=== PATIENT | female | born 1995 | race Caucasian/White ===

== ENCOUNTER → 2022-08-04 | Outpatient (CLI) | payer SELFPAY | END | disposition home or self-care (01) | LOC: LABWHC1 15:05 | PROVIDERS: ATTEND Emergency Medicine | DX: Z53.9 Procedure and treatment not carried out, unspecified reason (principal) | CPT/HCPCS: 36415; 86480 ==

== ENCOUNTER 2022-09-12 21:09 | Observation (INO) | payer OTHER ==
[2022-09-12 21:13] LABS: Glucose,Whole Blood 113 mg/dL (70-110)
[2022-09-12] MEDS ORDERED: SODIUM CHLORIDE 0.9% 1,000 ML IV STA (21:14)
--- NOTE | 2022-09-12 21:19 | ED ---
General Adult HPI - General Stated complaint: Seizure Time Seen by Provider: 09/12/22 21:14 Source: patient, RN notes reviewed, old records reviewed Limitations: altered mental status - History of Present Illness Initial comments: 27-year-old female presents with witnessed seizure. 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 At the time my evaluation patient is initially seizing but this stops without treatment. She is postictal and unable to give a complete history. Unknown prior medical history. - Related Data Home Medications Medication Instructions Recorded Confirmed ALPRAZolam [Xanax] 1 mg PO BID PRN 09/12/22 09/12/22 Dextroamphetamine/Amphetamine 10 mg PO DAILY PRN 09/12/22 09/12/22 [Adderall] Escitalopram [Lexapro] 10 mg PO DAILY 09/12/22 09/12/22 Lisdexamfetamine Dimesylate 40 mg PO DAILY 09/12/22 09/12/22 [Vyvanse] buPROPion XL [Wellbutrin XL] 300 mg PO DAILY 09/12/22 09/12/22 hydrOXYzine HCL [Atarax] 50 mg PO DAILY PRN 09/12/22 09/12/22 Allergies Allergy/AdvReac Type Severity Reaction Status Date / Time No Known Allergies Allergy Verified 09/12/22 22:10 Review of Systems ROS Statement: Those systems with pertinent positive or pertinent negative responses have been documented in the HPI. ROS Other: All systems not noted in ROS Statement are negative. General Exam General appearance: obtunded, in distress Head exam: Present: other (Chin abrasion). Absent: atraumatic (Right parietal hematoma) Eye exam: Present: normal appearance, PERRL ENT exam: Present: other (Bilateral tongue abrasion) Respiratory exam: Absent: respiratory distress, wheezes Cardiovascular Exam: Present: normal rhythm, tachycardia GI/Abdominal exam: Present: soft. Absent: distended, tenderness, guarding Extremities exam: Present: normal inspection, normal capillary refill Neurological exam: Present: alert, CN II-XII intact. Absent: motor sensory deficit Skin exam: Present: diaphoretic Course Vital Signs 09/12/22 09/12/22 09/12/22 21:25 21:30 23:47 Temperature 98.7 F Pulse Rate 98 118 H 91 Respiratory 18 Rate Blood Pressure 140/86 118/76 O2 Sat by Pulse 98 Oximetry - Reevaluation(s) Reevaluation #1: 09/12/22 21:42 Patient return to baseline mental status alert and oriented 3. Able to give history. No prior history of seizure disorder. EKG Findings - EKG Comments: EKG Findings:: EKG: Sinus tachycardia rate of 104, FL interval 118, QRS duration 98, QTC 413, RSR prime - EKG Results: EKG: interpreted by ANTHONY Medical Decision Making - Medical Decision Making Was pt. sent in by a medical professional or institution (, PA, GENERAL FARMWORKER, urgent care, hospital, or [facility]...) When possible be specific @ -No Did you speak to anyone other than the patient for history (EMS, parent, family, police, friend...)? What history was obtained from this source @ -No Did you review nursing and triage notes (agree or disagree)? Why? @ -I reviewed and agree with nursing and triage notes Were old charts reviewed (outside hosp., previous admission, EMS record, old EKG, old radiological studies, urgent care reports/EKG's, [facility] records)? Report findings @ -No old charts were reviewed Differential Diagnosis (chest pain, altered mental status, abdominal pain women, abdominal pain men, vaginal bleeding, weakness, fever, dyspnea, syncope, headache, dizziness, GI bleed, back pain, seizure, CVA, palpatations, mental health, musculoskeletal)? @ -Differential Seizure: Recurrent seizure disorder, febrile seizure, alcohol withdrawal, stimulants, meningitis, encephalitis, intercranial hemorrhage, intracranial tumor, stroke, eclampsia, thyrotoxicosis, hypocalcemia, hyponatremia, hypernatremia, hypomagnesemia, psychogenic, this is not meant to be an all-inclusive list. EKG interpreted by me (3pts min.). @ -As above X-rays interpreted by me (1pt min.). @ -None done CT interpreted by me (1pt min.). @ -CT brain performed, negative for intracranial hemorrhage, reviewed by myself and agree with the radiologist interpretation U/S interpreted by me (1pt. min.). @ -None done What testing was considered but not performed or refused? (CT, X-rays, U/S, labs)? Why? @ -None What meds were considered but not given or refused? Why? @ -None Did you discuss the management of the patient with other professionals (professionals i.e. , PA, GENERAL FARMWORKER, lab, RT, psych nurse, nursing home social worker, environmental lawyer, teacher, cra officer, social work case manager)? Give summary @ -No Was smoking cessation discussed for >3mins.? @ -No Was critical care preformed (if so, how long)? @ -No Were there social determinants of health that impacted care today? How? (Homelessness, low income, unemployed, alcoholism, drug addiction, transportation, low edu. Level, literacy, decrease access to med. care, snf, rehab)? @ -No Was there de-escalation of care discussed even if they declined (Discuss DNR or withdrawal of care, Hospice)? DNR status @ -No What co-morbidities impacted this encounter? (DM, HTN, Smoking, COPD, CAD, Cancer, CVA, ARF, Chemo, Hep., AIDS, mental health diagnosis, sleep apnea, morbid obesity)? @ -None Was patient admitted / discharged? Hospital course, mention meds given and route, prescriptions, significant lab abnormalities, going to OR and other pertinent info. @ -27-year-old female presenting with witnessed tonic-clonic seizure. No prior history of seizure disorder. Patient had both head and facial trauma. CT was performed which is negative. Normal CBC, normal CMP, urinalysis and urine test pending. Patient will be observed on seizure precautions with neurology on consult. Undiagnosed new problem with uncertain prognosis? @ -No Drug Therapy requiring intensive monitoring for toxicity (Heparin, Nitro, Ins ulin, Cardizem)? @ -No Were any procedures done? @ -No Diagnosis/symptom? @ -New-onset seizure Acute, or Chronic, or Acute on Chronic? @ -Acute Uncomplicated (without systemic symptoms) or Complicated (systemic symptoms)? @ -Uncomplicated Side effects of treatment? @ -No Exacerbation, Progression, or Severe Exacerbation? @ -No Poses a threat to life or bodily function? How? (Chest pain, [place], CO, pneumonia, PE, COPD, DKA, ARF, appy, cholecystitis, CVA, Diverticulitis, Homicidal, Suicidal, threat to staff... and all critical care pts) @ -No - Lab Data Result diagrams: 09/12/22 22:01 09/12/22 22:01 Lab Results 09/12/22 09/12/22 09/12/22 Range/Units 21:12 22:01 22:01 WBC 7.9 (3.8-10.6) k/uL RBC 4.84 (3.80-5.40) m/uL Hgb 13.4 (11.4-16.0) gm/dL Hct 40.3 (34.0-46.0) % MCV 83.4 (80.0-100.0) fL MCH 27.7 (25.0-35.0) pg MCHC 33.3 (31.0-37.0) g/dL RDW 13.3 (11.5-15.5) % Plt Count 326 (150-450) k/uL MPV 6.6 Neutrophils % 63 % Lymphocytes % 29 % Monocytes % 3 % Eosinophils % 3 % Basophils % 1 % Neutrophils # 5.0 (1.3-7.7) k/uL Lymphocytes # 2.3 (1.0-4.8) k/uL Monocytes # 0.3 (0-1.0) k/uL Eosinophils # 0.2 (0-0.7) k/uL Basophils # 0.0 (0-0.2) k/uL Sodium 141 (137-145) mmol/L Potassium 3.7 (3.5-5.1) mmol/L Chloride 102 (98-107) mmol/L Carbon Dioxide 24 (22-30) mmol/L Anion Gap 15 mmol/L BUN 5 L (7-17) mg/dL Creatinine 0.61 (0.52-1.04) mg/dL Est GFR (CKD-EPI)AfAm >90 (>60 ml/min/1.73 sqM) Est GFR (CKD-EPI)NonAf >90 (>60 ml/min/1.73 sqM) Glucose 77 (74-99) mg/dL POC Glucose (mg/dL) 113 H (70-110) mg/dL POC Glu Case Maker ID Radha Sullivan Calcium 9.6 (8.4-10.2) mg/dL Magnesium 1.8 (1.6-2.3) mg/dL Total Bilirubin 1.6 H (0.2-1.3) mg/dL AST 23 (14-36) U/L ALT 21 (4-34) U/L Alkaline Phosphatase 42 (38-126) U/L Total Protein 8.1 (6.3-8.2) g/dL Albumin 5.1 H (3.5-5.0) g/dL Disposition Clinical Impression: New onset seizure Disposition: ADMITTED IP TO THIS [facility] Condition: Stable Instructions (If sedation given, give patient instructions): Seizure/Epilepsy Discharge Instructions & Follow-Up Is patient prescribed a controlled substance at d/c from ED?: No Referrals: None,Stated [Primary Care Provider] - 1-2 days Time of Disposition: 00:00
--- NOTE | 2022-09-12 21:59 | CT ---
EXAMINATION TYPE: CT brain wo con DATE OF EXAM: 09/12/2022 COMPARISON: None HISTORY: new onset seizure CT DLP: 1188.9 mGycm Automated exposure control for dose reduction was used. Images obtained of the brain with no contrast. Ventricles have normal size. There is no mass effect or midline shift. No sign of intracranial hemorr fannie. There is right lateral temporal scalp soft tissue swelling. The skull base is intact. IMPRESSION: No intracranial abnormality. Right temporal scalp hematoma.
[2022-09-12 22:12] LABS: Basophils % (A) 1 %; Eosinophils # (A) 0.2 k/uL (0-0.7); Eosinophils % (A) 3 %; HCT 40.3 % (34.0-46.0); HGB 13.4 gm/dL (11.4-16.0); Lymphocytes # (A) 2.3 k/uL (1.0-4.8); Lymphocytes % (A) 29 %; MCH 27.7 pg (25.0-35.0); MCHC 33.3 g/dL (31.0-37.0); MCV 83.4 fL (80.0-100.0); Mean Platelet Volume 6.6; Monocytes # (A) 0.3 k/uL (0-1.0); Monocytes % (A) 3 %; Neutrophils % (A) 63 %; Platelet Count 326 k/uL (150-450); RBC 4.84 m/uL (3.80-5.40); RDW 13.3 % (11.5-15.5); WBC 7.9 k/uL (3.8-10.6)
[2022-09-12 22:40] LABS: ALT 21 U/L (4-34); AST 23 U/L (14-36); African American GFR (CKD) >90 (>60 ml/min/1.73 sqM); Albumin 5.1 g/dL (3.5-5.0); Alkaline Phosphatase 42 U/L (38-126); Anion Gap 15 mmol/L; Blood Urea Nitrogen 5 mg/dL (7-17); Calcium 9.6 mg/dL (8.4-10.2); Carbon Dioxide 24 mmol/L (22-30); Chloride 102 mmol/L (98-107); Glucose 77 mg/dL (74-99); Magnesium 1.8 mg/dL (1.6-2.3); Non-African American GFR(CKD) >90 (>60 ml/min/1.73 sqM); Potassium 3.7 mmol/L (3.5-5.1); Sodium 141 mmol/L (137-145); Total Bilirubin 1.6 mg/dL (0.2-1.3); Total Protein 8.1 g/dL (6.3-8.2)
[2022-09-12] MEDS ORDERED: ACETAMINOPHEN TAB 325 MG TAB PO PRN (23:56)
[2022-09-12] MEDS ORDERED: NALOXONE 0.4 MG/ML 1 ML VIAL IV PRN (23:56)
[2022-09-12] MEDS ORDERED: LORazepam 2 MG/ML INJ IV PRN (23:58)
[2022-09-13] MEDS: SODIUM CHLORIDE 0.9% 1,000 ML IV SCH ×2 (00:08→15:13)
[2022-09-13 06:10] VITALS: RESP 16
[2022-09-13] MEDS ORDERED: ESCITALOPRAM 10 MG TAB PO SCH (09:00)
[2022-09-13] MEDS ORDERED: LISDEXAMFETAMINE DIMESYLATE 40 MG PO SCH (09:00)
[2022-09-13] MEDS ORDERED: buPROPion XL 300 MG TAB.ER.24H PO SCH (09:00)
[2022-09-13 10:35] LABS: Appearance,Urine Clear (Clear); Bacteria,Urine Rare /hpf; Bilirubin,Urine Negative (Negative); Blood,Urine Small (Negative); Color,Urine Yellow; Glucose,Urine (UA) Negative (Negative); Ketones,Urine Negative (Negative); Leukocyte Esterase,Urine Negative (Negative); Mucus,Urine Occasional /hpf; Nitrite,Urine Negative (Negative); PH, Urine 6.5 (5.0-8.0); Protein,Urine Negative (Negative); RBC,Urine 5 /hpf (0-5); Specific Gravity,Urine 1.011 (1.001-1.035); Squamous Epithelial Cell,Urine 9 /hpf (0-4); Urobilinogen,Urine <2.0 mg/dL (<2.0); WBC,Urine 2 /hpf (0-5)
--- NOTE | 2022-09-13 10:48 | P.CNNES ---
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 She stated that yesterday she was asking the nurse to help with IV line and all of a sudden she does not recall happened but the was notified that she had a seizure-like activity. She denies any urinary or bowel incontinence but felt her tongue was sore. Per the ED she had a seizure lasting for about 1 minute with the head and facial trauma and the seizure stopped without any treatment. Patient denies of any history of seizures in the past or family history of seizure. Denies of any recent fevers or sickness recently. She stated that she has underlying history of ADHD and anxiety and that Medications Lexapro which was started 2 weeks ago on that she's been on Wellbutrin for a long time. Regarding the patient's history she stated that to her knowledge was normal vaginal delivery, no complication and was at term. Some of the workup during his hospital visit consisted of: CBC with differential is unremarkable Sodium, magnesium, calcium, AST ALT, glucose are within normal limits. Urine hCG is negative CT of the head is reported as no intracranial abnormality. Right temporal scalp hematoma. I personally reviewed the CT and I agree there is no acute subacute ischemia, no intraparenchymal hemorrhage. The patient does have hematoma on the right side. Review of Systems Review of system: The 12 point system was reviewed and apparent positive and negative per HPI. Past Medical History Past Medical History: Asthma History of Any Multi-Drug Resistant Organisms: MRSA Date of last positivie culture/infection: 2010 MDRO Source:: r ankle Past Surgical History: Unable to Obtain Additional Past Surgical History / Comment(s): mrsa when she was 15 with i&d of r ankle. endoscopy. Past Anesthesia/Blood Transfusion Reactions: No Reported Reaction Past Psychological History: ADD/ADHD, Anxiety Smoking Status: Never smoker Past Alcohol Use History: None Reported Past Drug Use History: None Reported Medications and Allergies Home Medications Medication Instructions Recorded Confirmed Type ALPRAZolam [Xanax] 1 mg PO BID PRN 09/12/22 09/12/22 History Dextroamphetamine/Amphetamine 10 mg PO DAILY PRN 09/12/22 09/12/22 History [Adderall] Escitalopram [Lexapro] 10 mg PO DAILY 09/12/22 09/12/22 History Lisdexamfetamine Dimesylate 40 mg PO DAILY 09/12/22 09/12/22 History [Vyvanse] buPROPion XL [Wellbutrin XL] 300 mg PO DAILY 09/12/22 09/12/22 History hydrOXYzine HCL [Atarax] 50 mg PO DAILY PRN 09/12/22 09/12/22 History Allergies Allergy/AdvReac Type Severity Reaction Status Date / Time No Known Allergies Allergy Verified 09/12/22 22:10 Physical Examination - Vital Signs Vital Signs: Vital Signs Temp Pulse Pulse Resp BP BP Pulse Ox 09/13/22 08:51 81 16 09/13/22 08:00 98.4 F 81 16 105/69 100 09/13/22 06:09 98.7 F 89 16 122/80 97 09/12/22 23:47 91 118/76 09/12/22 21:30 118 H 09/12/22 21:25 98.7 F 98 18 140/86 98 Intake and Output 09/12/22 09/13/22 09/13/22 22:59 06:59 14:59 Intake Total 100 Balance 100 Intake: Oral 100 Other: Voiding Method Toilet Weight 56.699 kg 56.699 kg GENERAL: The patient is lying in bed and is not in acute distress. CHEST: The heart rate is regular rate rhythm. No murmurs to auscultation. LUNG: Clear to auscultation bilaterally no wheezing noted throughout. Not labored breathing. ABDOMEN/GI: Bowel sounds present in all 4 quadrants. No tenderness to palpation throughout. NEUROLOGICAL: Higher mental function: The patient is awake, alert, oriented to self, place and time. Patient is following commands. No aphasia and no neglect. Cranial nerves: The pupils are round, equal and reactive to light and accommodation. Visual flor are full to confrontation throughout. Extraocular movement is intact no nystagmus is noted. Facial sensation is normal to touch throughout. The facial strength is normal throughout. Hearing is normal bilaterally to hand rub. Tongue is midline and moved [id number] without any difficulty. No dysarthria is noted. Shoulder shrug is normal bilaterally. Motor: The strength is 5 over 5 throughout. Normal tone and bulk. Cerebellum: Normal finger to nose bilaterally. Sensation: Sensation is normal to touch throughout. Reflexes (right/left): 2+ throughout. Plantars are downgoing bilaterally. 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 Unsure exact cause but Wellbutrin can lower seizure threshold. ADHD Anxiety Plan: I will not start the patient on anti-seizure medication since this is a first seizure episode. If she has any further seizure then she'll be started on antiseizure medication. EEG is ordered is pending I recommend MRI the brain with and without seizure protocol. Patient opted and like to get as an outpatient. Seizure precautions Seizure pads I notified the patient that Wellbutrin can lower the seizure threshold and recommend that she follows up with her psychiatrist/PCP as an outpatient to either change the medication to something else or lower the dose. Per the [place] DMV because of seizure, she was notified to avoid driving for 6 month until seizure-free, avoid heights, avoids swimming unassisted or using heavy machinery. Recommend the patient to follow-up with a neurologist as outpatient within 1-2 weeks. The plan was discussed with the patient and her nurse was at bedside Thank you for the consultation. Time with Patient: Greater than 30
--- NOTE | 2022-09-13 13:40 | P.HPIM ---
History of Present Illness H&P Date: 09/13/22 History of present illness; patient returns 27-year-old lady with past medical significant for depression who presented to the ER because of episode of seizure. Patient has no prior history of any seizures. 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 Patient had witnessed seizure and had trauma to head and face during this episode. There was no loss of bowel or urinary control. No complain of tongue biting. Patient was postictal after this episode during ER physician's exam. Initial lab work done in the ER showed patient to have a hemoglobin of 13.4 and platelet count 326, sodium 141, potassium 3.7, chloride 102, anion gap 15, BUN 5 creatinine 0.61, calcium 9.6, magnesium 1.8, AST 23. CT head without contrast done showed no acute intracranial abnormality. Patient was admitted for further evaluation and treatment REVIEW OF SYSTEMS: CONSTITUTIONAL: No fever, no malaise, no fatigue. HEENT: No recent visual problems or hearing problems. Denied any sore throat. CARDIOVASCULAR: No chest pain, orthopnea, PND, no palpitations, no syncope. PULMONARY: No shortness of breath, no cough, no hemoptysis. GASTROINTESTINAL: No diarrhea, no nausea, no vomiting, no abdominal pain. NEUROLOGICAL: No headaches, no weakness, no numbness. HEMATOLOGICAL: Denies any bleeding or petechiae. GENITOURINARY: Denies any burning micturition, frequency, or urgency. MUSCULOSKELETAL/RHEUMATOLOGICAL: Denies any joint pain, swelling, or any muscle pain. ENDOCRINE: Denies any polyuria or polydipsia. The rest of the 14-point review of systems is negative. PHYSICAL EXAMINATION: GENERAL: The patient is alert and oriented x3, not in any acute distress. Well developed, well nourished. HEENT: Pupils are round and equally reacting to light. EOMI. No scleral icterus. Bruising to chin and forehead seen CARDIOVASCULAR: S1 and S2 present. No murmurs, rubs, or gallops. PULMONARY: Chest is clear to auscultation, no wheezing or crackles. ABDOMEN: Soft, nontender, nondistended, normoactive bowel sounds. No palpable organomegaly. MUSCULOSKELETAL: No joint swelling or deformity. EXTREMITIES: No cyanosis, clubbing, or pedal edema. NEUROLOGICAL: Gross neurological examination did not reveal any focal deficits. SKIN: No rashes. Assessment and plan Seizure Depression Anxiety Plan Monitor vital signs Monitor CBC Monitor CMP Seizure precautions Aspiration precautions Neuro checks Results of CT head without contrast noted EEG ordered Neurology consult Past Medical History Past Medical History: Asthma History of Any Multi-Drug Resistant Organisms: MRSA Date of last positivie culture/infection: 2010 MDRO Source:: r ankle Past Surgical History: Unable to Obtain Additional Past Surgical History / Comment(s): mrsa when she was 15 with i&d of r ankle. endoscopy. Past Anesthesia/Blood Transfusion Reactions: No Reported Reaction Past Psychological History: ADD/ADHD, Anxiety Smoking Status: Never smoker Past Alcohol Use History: None Reported Past Drug Use History: None Reported Medications and Allergies Home Medications Medication Instructions Recorded Confirmed Type ALPRAZolam [Xanax] 1 mg PO BID PRN 09/12/22 09/12/22 History Dextroamphetamine/Amphetamine 10 mg PO DAILY PRN 09/12/22 09/12/22 History [Adderall] Escitalopram [Lexapro] 10 mg PO DAILY 09/12/22 09/12/22 History Lisdexamfetamine Dimesylate 40 mg PO DAILY 09/12/22 09/12/22 History [Vyvanse] buPROPion XL [Wellbutrin XL] 300 mg PO DAILY 09/12/22 09/12/22 History hydrOXYzine HCL [Atarax] 50 mg PO DAILY PRN 09/12/22 09/12/22 History Allergies Allergy/AdvReac Type Severity Reaction Status Date / Time No Known Allergies Allergy Verified 09/12/22 22:10 Physical Exam Vitals: Vital Signs Temp Pulse Pulse Resp BP BP Pulse Ox 09/13/22 08:51 81 16 09/13/22 08:00 98.4 F 81 16 105/69 100 09/13/22 06:09 98.7 F 89 16 122/80 97 09/12/22 23:47 91 118/76 09/12/22 21:30 118 H 09/12/22 21:25 98.7 F 98 18 140/86 98 Intake and Output 09/12/22 09/13/22 09/13/22 22:59 06:59 14:59 Other: Voiding Method Toilet Weight 56.699 kg 56.699 kg Results CBC & Chem 7: 09/12/22 22:01 09/12/22 22:01 Labs: Abnormal Lab Results - Last 24 Hours (Table) 09/12/22 09/12/22 Range/Units 21:12 22:01 BUN 5 L (7-17) mg/dL POC Glucose (mg/dL) 113 H (70-110) mg/dL Total Bilirubin 1.6 H (0.2-1.3) mg/dL Albumin 5.1 H (3.5-5.0) g/dL Thrombosis Risk Factor Assmnt - Choose All That Apply Any of the Below Risk Factors Present?: No Other Risk Factors: No Other congenital or acquired thrombophilia - If yes, enter type in comment: No Thrombosis Risk Factor Assessment Level: Very Low Risk
--- NOTE | 2022-09-13 13:44 | P.DS ---
Providers Date of admission: 09/12/22 23:56 Expected date of discharge: 09/13/22 Attending physician: Senait Guzmán Consults: 09/12/22 23:56 Consult Physician Routine Consulting Provider: Leonel Velasco Consult Reason/Comments: New onset seizure Do you want consulting provider notified?: Yes Primary care physician: Stated None Hospital Course: Discharge diagnoses; Seizure Depression Anxiety ADHD Hospital course; patient returns 27-year-old lady with past medical significant for depression who presented to the ER because of episode of seizure. Patient has no prior history of any seizures. 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 Patient had witnessed seizure and had trauma to head and face during this episode. There was no loss of bowel or urinary control. No complain of tongue biting. Patient was postictal after this episode during ER physician's exam. Initial lab work done in the ER showed patient to have a hemoglobin of 13.4 and platelet count 326, sodium 141, potassium 3.7, chloride 102, anion gap 15, BUN 5 creatinine 0.61, calcium 9.6, magnesium 1.8, AST 23. CT head without contrast done showed no acute intracranial abnormality. Patient was admitted for further evaluation and treatment Neurology consulted, they ordered EEG which was normal. Neurology also recommended doing MRI but Patient opted and like to get as an outpatient. Neurology told patient that Wellbutrin can lower the seizure threshold and recommend that she follows up with her psychiatrist/PCP as an outpatient to either change the medication to something else or lower the dose. Per the [place] DMV because of seizure, she was notified to avoid driving for 6 month until seizure-free, avoid heights, avoids swimming unassisted or using heavy machinery. Recommend the patient to follow-up with a neurologist as outpatient within 1-2 weeks.' PHYSICAL EXAMINATION: GENERAL: The patient is alert and oriented x3, not in any acute distress. Well developed, well nourished. HEENT: Pupils are round and equally reacting to light. EOMI. bruising to chin and forehead noticeable CARDIOVASCULAR: S1 and S2 present. No murmurs, rubs, or gallops. PULMONARY: Chest is clear to auscultation, no wheezing or crackles. ABDOMEN: Soft, nontender, nondistended, normoactive bowel sounds. No palpable organomegaly. MUSCULOSKELETAL: No joint swelling or deformity. EXTREMITIES: No cyanosis, clubbing, or pedal edema. NEUROLOGICAL: Gross neurological examination did not reveal any focal deficits. SKIN: No rashes. Patient Condition at Discharge: Stable Plan - Discharge Summary Discharge Rx Participant: No New Discharge Prescriptions: Continue buPROPion XL [Wellbutrin XL] 300 mg PO DAILY hydrOXYzine HCL [Atarax] 50 mg PO DAILY PRN PRN Reason: Anxiety Lisdexamfetamine Dimesylate [Vyvanse] 40 mg PO DAILY Escitalopram [Lexapro] 10 mg PO DAILY Dextroamphetamine/Amphetamine [Adderall] 10 mg PO DAILY PRN PRN Reason: adhd ALPRAZolam [Xanax] 1 mg PO BID PRN PRN Reason: Anxiety Discharge Medication List ALPRAZolam [Xanax] 1 mg PO BID PRN 09/12/22 [History] Dextroamphetamine/Amphetamine [Adderall] 10 mg PO DAILY PRN 09/12/22 [History] Escitalopram [Lexapro] 10 mg PO DAILY 09/12/22 [History] Lisdexamfetamine Dimesylate [Vyvanse] 40 mg PO DAILY 09/12/22 [History] buPROPion XL [Wellbutrin XL] 300 mg PO DAILY 09/12/22 [History] hydrOXYzine HCL [Atarax] 50 mg PO DAILY PRN 09/12/22 [History] Follow up Appointment(s)/Referral(s): None,Stated [Primary Care Provider] - 1-2 days Leonel Velasco MD [STAFF PHYSICIAN] - 1 Week Patient Instructions/Handouts: Seizure/Epilepsy Discharge Instructions & Follow-Up Activity/Diet/Wound Care/Special Instructions: please follow up with neurologist Discharge Disposition: HOME SELF-CARE
--- NOTE | 2022-09-13 13:50 | EEG ---
ELECTROENCEPHALOGRAM REPORT CLINICAL HISTORY: This is a 27-year-old woman who had a witnessed seizure-like activity on 09/12/2022. The video EEG is obtained to evaluate for seizure epileptiform activity. RELEVANT MEDICATION: The patient is not on any anti-epileptic drugs. EEG TYPE: A routine 21-channel EEG is performed with video using the 10/20 electrode placement system. DESCRIPTION: Wakefulness is obtained. During awake state, the posterior-dominant rhythm consists of [id number] voltage of 9.5 to 10 hertz activity that is well modulated and well sustained. There is no physiological stage 2 sleep architecture. There is no focal slowing. Interictal and ictal is none. ACTIVATION PROCEDURE: Photic stimulation did evoke a posterior driving response at low flash frequencies. There is no abnormality during photic stimulation. Hyperventilation is not performed. CLINICAL INTERPRETATION: This is a normal routine EEG. There is no focal slowing, epileptiform discharge or seizure on the EEG. Normal EEG does not rule out underlying epilepsy. Clinical correlation is recommended. MMZULY / GAYATRIN: [id number] /
[2022-09-13 15:12] VITALS: BP 97/57; PULSE 98; TEMP 98
== END 2022-09-13 15:12 | disposition home or self-care (01) ==
LOC: EC 21:09 → 6NMEDSUR 23:56
PROVIDERS: ADMIT Hospitalist; ATTEND Hospitalist
DX: R56.9 Unspecified convulsions (principal); F32.A Depression, unspecified; F41.9 Anxiety disorder, unspecified; F90.9 Attention-deficit hyperactivity disorder, unspecified type; J45.909 Unspecified asthma, uncomplicated; Z79.899 Other long term (current) drug therapy
CPT/HCPCS: 96360; 96361; 99285; 36415; 95816; 93005; 80053; 83735; 85025; 81001; 81025; 70450; G0378 ×2